=== PATIENT | male | born 1995 | race Caucasian/White ===

== ENCOUNTER 2020-05-25 20:30 | Emergency (ER) | payer OTHER ==
[~2020-05-25] VITALS: Ht 175.3 cm; Wt 85.3 kg
== END 2020-05-25 23:00 | disposition home or self-care (01) ==
LOC: ER 20:30
DX: S91.341A Puncture wound with foreign body, right foot, initial encounter (principal); T63.691A Toxic effect of contact with other venomous marine animals, accidental (unintentional), initial encounter; Y92.832 Beach as the place of occurrence of the external cause; Y93.01 Activity, walking, marching and hiking; Y99.8 Other external cause status